=== PATIENT | female | born 1975 | race Caucasian/White ===

== ENCOUNTER 2022-02-08 12:58 | Emergency (ER) | payer MEDICAID, SELFPAY ==
[2022-02-08 13:20] VITALS: BP 106/78; PULSE 68; RESP 19; TEMP 36.6; O2SAT 98; BMI 21.1
--- NOTE | 2022-02-08 13:40 | XR_ITS ---
FINAL REPORT CLINICAL HISTORY: pain, unknown trauma, pt states that the pain started today. FINDINGS: LEFT SHOULDER Three views demonstrate no acute fracture or dislocation. There is mild degenerative change of the acromioclavicular joint. The visualized bony structures are well aligned. No soft tissue abnormality is seen. IMPRESSION: Mild degenerative change of the acromioclavicular joint. No acute bony abnormality. Reviewed, Interpreted and Dictated by Noel Blue III, MD Transcribed by Terri Carmichael Authenticated and . [facility]
--- NOTE | 2022-02-08 13:56 | HMH.EDUTC ---
[facility] [place] Disposition Clinical Impression: Shoulder pain Qualifiers: Chronicity: unspecified Laterality: unspecified laterality Qualified Code(s): M25.519 - Pain in unspecified shoulder Disposition: Home, Self-Care Condition on Discharge: Good Instructions: Naproxen, Methylprednisolone, Methocarbamol Additional Instructions: *RICE, Rest the extremity, Ice 15-20 minutes 3-4 times daily, Compress- wear the aury wrap as discussed as much as possible to help reduce swelling and pain, Elevate the extremity when at rest *Elevate when resting *Naproxen every 12 hours as needed for pain an inflammation. Immediately follow up with your family doctor for new or worsening of symptoms, or no noticeable improvement over the next 3-5 days Prescriptions: methylPREDNISolone [Medrol 4mg tab] 4 mg PO DIRECTED #21 tab Transmission Status: Pending to [id number] methocarbamoL [Methocarbamol 500mg Tablet] 500 mg PO BID PRN #10 tab PRN Reason: Muscle Spasm Transmission Status: Pending to [id number] Naproxen [Naproxen 500mg tab] 500 mg PO BID PRN #10 tab PRN Reason: Moderate Pain Transmission Status: Pending to [id number] Referrals: Juan Jose Ervin MD [Primary Care Provider] - As needed Forms: Work/School Release Medical Decision Making - Isaiah Inquiry Pt receiving controlled substance: No Isaiah was queried for this patient: No Vital Signs: 02/08/22 13:20 Temperature 97.8 F Temperature Source Oral Pulse Rate [Right Brachial] 68 Respiratory Rate 19 Blood Pressure [Right Arm] 106/78 L Blood Pressure Mean [Right Arm] 87 Blood Pressure Source [Right Arm] Automatic Cuff Blood Pressure Position [Right Arm] Sitting 02 Sat by Pulse Oximetry 98 Oxygen Delivery Method Room Air Orders (Tests/Meds): ORDERS Category Date Time Status XR shoulder LT min 2V Stat Exams 02/08/22 13:40 Taken - Radiology Data #1 Image(s): Shoulder Image Reviewed: Yes I reviewed the patient's radiology image Preliminary Findings: No Fracture Seen [facility] [place] HPI - General Stated complaint: left arm pain/stiffness, right arm soreness Time Seen by Provider: 02/08/22 13:40 Mode of Arrival: Ambulatory Source of Information: Patient Limitations: No Limitations Description of Symptoms (Recalled from Triage Doc. by RN): PATIENT C/O BILATERAL ARM PAIN SINCE YESTERDAY. DENIES INJURIES HEENT Symptoms (Recalled from RN notes): No Resp Symptoms (Recalled from RN notes): No Skin Symptoms (Recalled from RN notes): No MS Symptoms (Recalled from RN notes): Yes Functional Status (Recalled from RN notes): WNL - History of Present Illness Provider Complaint: Patient states that she has been having bilateral shoulder pain for several days but was worse after she woke up yesterday State that feels like the muscles in her shoulder is tight States that she does alot of pulling and tugging at work and not sure if she may have done something States that left shoulder hurts worse when she tries to raise it up Denies chest pain denies radiation of pain - Related Data Home Medications Medication Instructions Recorded Confirmed Sertraline HCl 50 mg PO DAILY 02/08/22 02/08/22 Previous Rx's Medication Instructions Recorded Naproxen [Naproxen 500mg tab] 500 mg PO BID PRN #10 tab 02/08/22 methocarbamoL [Methocarbamol 500mg 500 mg PO BID PRN #10 tab 02/08/22 Tablet] methylPREDNISolone [Medrol 4mg 4 mg PO DIRECTED #21 tab 02/08/22 tab] Allergies Allergy/AdvReac Type Severity Reaction Status Date / Time acetaminophen [From Lortab] Allergy Verified 02/08/22 13:37 hydrocodone [From Lortab] Allergy Verified 02/08/22 13:37 morphine Allergy Verified 02/08/22 13:37 - Worker's Comp Is this a Worker's Comp case?: No [facility] History - Hepatitis A Screen Attestation statement:: This patient has been screened for Hepatitis A risk factors. I have reviewed the patient's past medical history: Yes -
[2022-02-08 14:38] VITALS: BP 106/78; PULSE 68; RESP 19; TEMP 36.6; O2SAT 98
== END 2022-02-08 14:43 | disposition home or self-care (01) ==
PROVIDERS: Emergency Provider Nurse Practitioner; PCP Family Medicine
DX: M25.512 Pain in left shoulder (principal); M25.511 Pain in right shoulder; M79.602 Pain in left arm; M79.601 Pain in right arm; Z79.1 Long term (current) use of non-steroidal anti-inflammatories (NSAID); Z79.52 Long term (current) use of systemic steroids; Z88.6 Allergy status to analgesic agent; Z88.8 Allergy status to other drugs, medicaments and biological substances
CPT/HCPCS: 73030; 99213; G0463